=== PATIENT | female | born 1950 | race Caucasian/White ===

== ENCOUNTER 2016-11-09 15:13 | Emergency (ER) | payer MEDICARE, OTHER ==
[~2016-11-09] VITALS: Ht 157.5 cm; Wt 90.7 kg
[2016-11-09] MEDS ORDERED: ACETAMINOPHEN ES 500 MG TABLET ONE (16:15)
[2016-11-09] MEDS ORDERED: ACETAMINOPHEN ES 500 MG TABLET PO ONE (16:30)
[2016-11-09] MEDS ORDERED: INSULIN REGULAR, HUMAN 100 UNIT/ML 10 ML VIAL ONE (16:39)
--- NOTE | 2016-11-09 16:43 | NUR ---
stable; dc home with her family. no acute distress.
--- NOTE | 2016-11-09 16:43 | NUR ---
SQ x 1; given; witnessed by Gasper MARINA ; initial BS - 421; non-ketotic.
--- NOTE | 2016-11-09 16:44 | NUR ---
Patient discharged to home in stable condition. Written and verbal after care instructions given. Patient verbalizes understanding of instruction.
[2016-11-09 16:45] VITALS: BP 125/88
[2016-11-09] MEDS ORDERED: INSULIN REGULAR, HUMAN 100 UNIT/ML 10 ML VIAL SQ ONE (17:00)
== END 2016-11-09 16:46 | disposition home or self-care (01) ==
LOC: ER 15:16
DX: S39.012A Strain of muscle, fascia and tendon of lower back, initial encounter (principal); I10 Essential (primary) hypertension; X58.XXXA Exposure to other specified factors, initial encounter; Y93.89 Activity, other specified; Y92.89 Other specified places as the place of occurrence of the external cause; Y99.8 Other external cause status
CPT/HCPCS: 82962; 96372; 99283; A4606; J1815; Z7610

== ENCOUNTER 2021-10-05 02:15 | Emergency (ER) | payer MEDICARE, OTHER ==
[~2021-10-05] VITALS: Ht 170.2 cm; Wt 117.9 kg
--- NOTE | 2021-10-05 02:33 | NUR ---
Note godwin in EDM - 10/05/21 at 0247 by JED PATIENT TEO FROM [facility] C/O SOB. PATIENT IS NOT IN ANY DISTRESS WAS PLACED ON O2 NC 3L SATTING AT 99%. PLACED PATIENT IN BED 07 OPN MONITOR AND POX.
--- NOTE | 2021-10-05 02:33 | NUR ---
TEO FROM [facility] C/O HEADPAIN S/P LOST BALANCE, HIT HEAD ON SIDE OF BED -KO -HEADTRUAMA NOTED. PATIENT ALERT ANDORIENTED X3. AMBULATORY WITH NON LABORED BREATHING ON 2L SATTING 99%.
--- NOTE | 2021-10-05 02:34 | NUR ---
BLOOD COLLECTED AND SENT TO LAB
[2021-10-05] MEDS ORDERED: HYDROCODONE/APAP 5/325MG TABLET ONE (02:54)
[2021-10-05 02:58] LABS: BASOPHILS % (AUTO) 0.3 % (0.0-2.0); EOSINOPHILS % (AUTO) 0.1 % (0.0-6.0); HEMATOCRIT 41 % (33-45); HEMOGLOBIN 13.4 g/dL (11.5-14.8); LYMPHOCYTES # (AUTO) 0.7 K/uL (0.8-4.8); LYMPHOCYTES % (AUTO) 5.3 % (20.0-44.0); MEAN CORPUSCULAR HGB CONC 33 g/dl (31.0-36.0); MEAN CORPUSCULAR VOLUME 97 fL (82-100); MONOCYTES # (AUTO) 1.1 K/uL (0.1-1.30); MONOCYTES % (AUTO) 8.5 % (2.0-12.0); NEUTROPHILS % (AUTO) 85.8 % (43.0-81.0); PLATELET COUNT (AUTO) 84 K/uL (150-450); RED BLOOD CELL COUNT(AUTO) 4.19 MIL/uL (4.0-5.2); WHITE BLOOD COUNT (AUTO) 12.8 K/uL (4.3-11.0)
[2021-10-05] MEDS ORDERED: HYDROCODONE/APAP 5/325MG TABLET PO ONE (03:00)
[2021-10-05 03:09] LABS: CALCIUM, SERUM 8.8 mg/dL (8.5-10.1); CARBON DIOXIDE 28 mmol/L (21-32); CHLORIDE 98 mmol/L (98-107); GLUCOSE 193 mg/dL (74-106); POTASSIUM 3.6 mmol/L (3.5-5.1); SODIUM SERUM 133 mmol/L (136-145); UREA NITROGEN, BLOOD 19 mg/dL (7-18)
--- NOTE | 2021-10-05 03:09 | NUR ---
URINE SENT TO LAB
--- NOTE | 2021-10-05 03:13 | NUR ---
SAW RUNNER AT PT'S BEDSIDE
--- NOTE | 2021-10-05 03:15 | NUR ---
PT TAKEN TO CT VIA FELIPE
[2021-10-05 03:21] LABS: BILIRUBIN,URINE NEGATIVE (NEGATIVE); COLOR,URINE YELLOW (YELLOW); LEUKOCYTE ESTERASE ,URINE NEGATIVE (NEGATIVE); NITRITE, URINE POSITIVE (NEGATIVE); PROTEIN,URINE NEGATIVE (NEGATIVE); UGLUCOSE >=1000 mg/dL (NEGATIVE); UROBILINOGEN,URINE 0.2 EU/dL (0.2)
[2021-10-05 03:22] LABS: ALANINE AMINOTRANSFERASE 64 U/L (12-78); ALBUMIN 2.9 g/dL (3.4-5.0); ALKALINE PHOSPHATASE 425 U/L (46-116); ASPARTATE AMINOTRANSFERASE 60 U/L (15-37); BILIRUBIN,DIRECT 0.6 mg/dL (0.0-0.2); TOTAL PROTEIN, SERUM 7.8 g/dL (6.4-8.2)
--- NOTE | 2021-10-05 03:24 | NUR ---
PT RETURNED TO ER BED [address] V[address] FELIPE
[2021-10-05 03:26] LABS: BACTERIA,URINE Many /HPF (None Seen); RBC,URINE 0-2 /HPF (0-2); SQUAMOUS EPITHELIAL CELL,UR Few /HPF (None Seen); YEAST,URINE Few /HPF (None Seen)
--- NOTE | 2021-10-05 05:27 | NUR ---
[facility] ETA CHEESE BLENDER AT 0700
--- NOTE | 2021-10-05 06:13 | NUR ---
CALLED [facility] FOR PT UPDATE, NO ANSWER.
[2021-10-05 06:20] LABS: BAND % (MANUAL) 4 % (0.0-5.0); LYMPHOCYTES % (MANUAL) 6 % (16-48); MONOCYTES % (MANUAL) 9 % (0-11.0); NEUTROPHILS % (MANUAL) 81 (42-76)
--- NOTE | 2021-10-05 07:49 | NUR ---
TRANSPORT ARRIVED FOR ALLEY WORKER, REPORT GIVEN TO LINO Adams, PT WILL BE TAKEN TO [facility]
[2021-10-05 08:07] VITALS: BP 132/75
== END 2021-10-05 08:08 ==
LOC: ER 02:23
DX: S09.90XA Unspecified injury of head, initial encounter (principal); I10 Essential (primary) hypertension; K21.9 Gastro-esophageal reflux disease without esophagitis; E11.9 Type 2 diabetes mellitus without complications; J44.9 Chronic obstructive pulmonary disease, unspecified; J96.00 Acute respiratory failure, unspecified whether with hypoxia or hypercapnia; F32.9 Major depressive disorder, single episode, unspecified; W18.09XA Striking against other object with subsequent fall, initial encounter; Y93.89 Activity, other specified; Y92.89 Other specified places as the place of occurrence of the external cause; Y99.8 Other external cause status
CPT/HCPCS: 36415; 70450-TC; 71045-TC; 80048-TC; 80076-TC; 81001; 83605-TC; 83880; 84484-TC; 85025-TC; 85730-TC; 87040-TC; 87086-TC

== ENCOUNTER 2023-01-17 17:56 | Emergency (ER) | payer MEDICARE, OTHER ==
[~2023-01-17] VITALS: Ht 170.2 cm; Wt 117.5 kg
[2023-01-17] MEDS ORDERED: NYST15CR TP (18:19)
[2023-01-17] MEDS ORDERED: NYSTATIN CREAM 15 GM TUBE TP SCH (18:30)
--- NOTE | 2023-01-17 18:55 | NUR ---
CALLED [facility] FOR TRANSPORT ETA 1930. Addendum: 01/17/23 at 1857 by SAURAV RIVERA 2029 INA KRUGER
[2023-01-17 20:58] VITALS: BP 158/70
== END 2023-01-17 20:58 ==
LOC: ER 18:42
DX: B37.89 Other sites of candidiasis (principal); I10 Essential (primary) hypertension; J44.9 Chronic obstructive pulmonary disease, unspecified; E11.9 Type 2 diabetes mellitus without complications; K21.9 Gastro-esophageal reflux disease without esophagitis; F32.A Depression, unspecified; Z79.899 Other long term (current) drug therapy

== ENCOUNTER 2023-01-31 16:05 | Inpatient (IN) | payer MEDICARE, OTHER ==
[~2023-01-31] VITALS: Ht 152.4 cm; Wt 98.9 kg
[~2023-01-31 16:05] MED LIST: NYST15CR TP
--- NOTE | 2023-01-31 16:20 | NUR ---
MYCHAL JORDAN FRM MARTIN FOR NOTED INCREASED CONFUSION AND AGITATION. THE PATIENT IS ALERT AND ORIENTED X2. IN ROOM AIR AND DENIES SOB. RESPIRATION REGULAR AND UNLABORED. THE PATIENT IS ATTACHED TO THE MONITOR. WARM BLANKET PROVIDED FOR COMFORT. WILL CONTINUE TO MONITOR THE PATIENT.
[2023-01-31] MEDS ORDERED: HYDR-4076 PO (16:29)
[2023-01-31] MEDS ORDERED: EMPA25TA PO (16:29)
[2023-01-31] MEDS ORDERED: DOCU100T28 PO (16:29)
[2023-01-31] MEDS ORDERED: OMEP40CA21 PO (16:29)
[2023-01-31] MEDS ORDERED: ASPI-1169 PO (16:29)
[2023-01-31] MEDS ORDERED: METF-442 PO (16:29)
[2023-01-31] MEDS ORDERED: OXYB5TAB16 PO (16:29)
[2023-01-31] MEDS ORDERED: SERT25TA5 PO (16:29)
[2023-01-31] MEDS ORDERED: DICY10CA13 PO (16:29)
[2023-01-31] MEDS ORDERED: ICOS1CAP PO (16:29)
[2023-01-31] MEDS ORDERED: GLIP5TAB13 PO (16:29)
[2023-01-31] MEDS ORDERED: LEVO150T8 PO (16:29)
[2023-01-31] MEDS ORDERED: ACET-868 PO (16:29)
--- NOTE | 2023-01-31 16:30 | NUR ---
IV LINE IS ESTABLISHED, BLOOD SPECIMEN COLLECTED AND SENT TO THE LAB. THE LINE IS SALINE LOCKED.
--- NOTE | 2023-01-31 16:40 | NUR ---
URINE COLLECTED AND SENT TO THE LAB
[2023-01-31 16:48] LABS: BASOPHILS % (AUTO) 0.5 % (0.0-2.0); EOSINOPHILS % (AUTO) 1.4 % (0.0-6.0); HEMATOCRIT 32 % (33-45); HEMOGLOBIN 9.7 g/dL (11.5-14.8); LYMPHOCYTES # (AUTO) 1.1 K/uL (0.8-4.8); LYMPHOCYTES % (AUTO) 24.7 % (20.0-44.0); MEAN CORPUSCULAR HGB CONC 31 g/dl (31.0-36.0); MEAN CORPUSCULAR VOLUME 78 fL (82-100); MONOCYTES # (AUTO) 0.5 K/uL (0.1-1.30); MONOCYTES % (AUTO) 11.7 % (2.0-12.0); NEUTROPHILS # (AUTO) 2.7 K/uL (1.8-8.9); NEUTROPHILS % (AUTO) 61.7 % (43.0-81.0); PLATELET COUNT (AUTO) 153 K/uL (150-450); RED BLOOD CELL COUNT(AUTO) 4.06 MIL/uL (4.0-5.2); WHITE BLOOD COUNT (AUTO) 4.3 K/uL (4.3-11.0)
[2023-01-31 17:08] LABS: SERUM AMMONIA 13 umol/L (11-32)
[2023-01-31 17:15] LABS: ALANINE AMINOTRANSFERASE 55 U/L (12-78); ALBUMIN 2.7 g/dL (3.4-5.0); ALKALINE PHOSPHATASE 320 U/L (46-116); ASPARTATE AMINOTRANSFERASE 41 U/L (15-37); BILIRUBIN,DIRECT 0.2 mg/dL (0.0-0.2); BILIRUBIN,TOTAL 0.6 mg/dL (0.2-1.0); CALCIUM, SERUM 9.4 mg/dL (8.5-10.1); CARBON DIOXIDE 28 mmol/L (21-32); CHLORIDE 102 mmol/L (98-107); CREATININE 0.9 mg/dL (0.6-1.3); GLUCOSE 242 mg/dL (74-106); POTASSIUM 3.8 mmol/L (3.5-5.1); SODIUM SERUM 140 mmol/L (136-145); TOTAL PROTEIN, SERUM 8.3 g/dL (6.4-8.2); UREA NITROGEN, BLOOD 14 mg/dL (7-18)
[2023-01-31 17:21] LABS: BILIRUBIN,URINE NEGATIVE (NEGATIVE); COLOR,URINE YELLOW (YELLOW); LEUKOCYTE ESTERASE ,URINE 2+ (NEGATIVE); NITRITE, URINE POSITIVE (NEGATIVE); PROTEIN,URINE NEGATIVE (NEGATIVE); UGLUCOSE 3+ mg/dL (NEGATIVE); UROBILINOGEN,URINE 0.2 EU/dL (0.2)
--- NOTE | 2023-01-31 17:26 | NUR ---
THE PATIENT IS TAKEN TO CT VIA RNEY
--- NOTE | 2023-01-31 17:38 | NUR ---
RECEIVED TROPONIN RESULT 52. DR. SÁNCHEZ AWARE
--- NOTE | 2023-01-31 17:41 | NUR ---
COVID SWAB DONE AND SENT TO THE LAB
[2023-01-31 17:46] LABS: SITE, VBG Other; VBG COHb 0.1 %; VBG MetHb 0.3 %; VBG O2Hb 42.1 %; VENT MODE, VBG Room Air
[2023-01-31 17:47] LABS: BACTERIA,URINE 3+ /HPF (None Seen); RBC,URINE 0-2 /HPF (0-2); WBC,URINE 21-50 /HPF (0-3)
[2023-01-31] MEDS ORDERED: CEFTRIAXONE 1GM BAG (ER ONLY) 1 GM/50 ML PIGGYBACK IV ONE (18:00)
[2023-01-31] MEDS ORDERED: ASPIRIN 325 MG TABLET PO ONE (18:00)
[2023-01-31] MEDS ORDERED: CEFTRIAXONE 1 G in IV D5W 50 ML IV ONE (18:30)
[2023-01-31] MEDS ORDERED: ACETAMINOPHEN 325 MG TABLET PO PRN (20:00)
[2023-01-31] MEDS ORDERED: DEXTROSE 50%-WATER 50 ML DISP.SYRIN IV PRN (20:00)
[2023-01-31] MEDS ORDERED: ONDANSETRON HCL/PF 4 MG/2 ML VIAL IVP PRN (20:00)
[2023-01-31] MEDS ORDERED: MAGNESIUM HYDROXIDE 30 ML UDC PO PRN (20:00)
[2023-01-31] MEDS ORDERED: Z GUARD REMEDY 4 OZ OINT TP PRN (20:00)
--- NOTE | 2023-01-31 21:26 | NUR ---
REPORT GIVEN TO AUREA MARINA FOR CELESTE
--- NOTE | 2023-01-31 21:40 | NUR ---
CAMPAIGN SPECIALISTPAPER GOODS MACHINE SET UP OPERATOR NOTES REPORT RECEIVED FROM MARY LOU. PATIENT WAS TRANSFERRED FROM ER VIA GURNEY, WITH NO SIGNS OF DISTRESS. ORIENTED PATIENT TO ROOM SET UP AND EDUCATED PATIENT ON THE USE OF CALL LIGHT. VS TAKEN, STABLE AND RECORDED. SKIN ASSESSMENT DONE AND PICTURES TAKEN. ALL BELONGINGS CHECKED AND BELONGING LIST SIGNED. WILL CONTINUE TO MONITOR THE PATIENT AND WILL CARRY OUT ANY ONGOING ACTIVE MD ORDERS.
[2023-02-01] MEDS: BLOOD SUGAR DIAGNOSTIC 1 EACH STRIP IN SCH ×5 (01:49→21:30)
[2023-02-01] MEDS: SERTRALINE HCL 25 MG TABLET PO SCH ×2 (01:49→21:20)
[2023-02-01] MEDS: ENOXAPARIN SODIUM 40 MG/0.4 ML DISP.SYRIN SQ SCH ×2 (02:08→21:20)
[2023-02-01] MEDS: INSULIN REGULAR, HUMAN 100 UNIT/ML 3 ML VIAL SQ PRN ×5 (02:11→21:52)
[2023-02-01 03:54] VITALS: BP 148/68
[2023-02-01 06:53] LABS: BASOPHILS % (AUTO) 0.5 % (0.0-2.0); HEMATOCRIT 30 % (33-45); HEMOGLOBIN 9.1 g/dL (11.5-14.8); LYMPHOCYTES # (AUTO) 1.1 K/uL (0.8-4.8); LYMPHOCYTES % (AUTO) 21.7 % (20.0-44.0); MEAN CORPUSCULAR HGB CONC 30 g/dl (31.0-36.0); MEAN CORPUSCULAR VOLUME 78 fL (82-100); MONOCYTES # (AUTO) 0.7 K/uL (0.1-1.30); MONOCYTES % (AUTO) 13.4 % (2.0-12.0); NEUTROPHILS # (AUTO) 3.1 K/uL (1.8-8.9); NEUTROPHILS % (AUTO) 62.4 % (43.0-81.0); PLATELET COUNT (AUTO) 133 K/uL (150-450); RED BLOOD CELL COUNT(AUTO) 3.83 MIL/uL (4.0-5.2); WHITE BLOOD COUNT (AUTO) 4.9 K/uL (4.3-11.0)
--- NOTE | 2023-02-01 07:00 | NUR ---
ADMINISTRATION INTERNSHIP CLOSING NOTES PATIENT IN BED SLEEPING. EASILY AWAKEN BY VERBAL STIMULI. A/O X 2-3, CONFUSED. NO S/S OF PAIN NOTED AT THIS TIME. ON ROOM AIR, BREATHING EVEN AND UNLABORED, NO DISTRESS OR SOB NOTED. IV ACCESS RFA #20G, INTACT AND PATENT. PATIENT IN EXTERNAL OFFENSIVE COORDINATOR CURRENT READING OF SINUS RHYTHM @ 86 WITH BBB. ON PUREWICK DRAINED 500ML. SAFETY MEASURES MAINTAINED DURING SHIFT. ALL NEEDS ATTENDED. WILL ENDORSE TO THE NEXT SHIFT.
[2023-02-01 08:12] LABS: CALCIUM, SERUM 9.2 mg/dL (8.5-10.1); CREATININE 0.8 mg/dL (0.6-1.3); MAGNESIUM 2.1 mg/dL (1.8-2.4); PHOSPHORUS 4.7 mg/dL (2.5-4.9); POTASSIUM 3.9 mmol/L (3.5-5.1)
[2023-02-01 08:30] VITALS: BP 138/59
[2023-02-01] MEDS ORDERED: Medication Not On Formulary EA (Icosapent Ethyl (Vascepa) 1 GM) PO SCH (09:00)
[2023-02-01] MEDS: EMPAGLIFLOZIN 25 MG TABLET PO SCH ×2 (09:00→11:08)
[2023-02-01] MEDS: DOCUSATE SODIUM LIQ 100 MG/10 ML UDC PO SCH ×2 (10:40→17:46)
[2023-02-01] MEDS: ASPIRIN 81 MG TAB.CHEW PO SCH (10:40)
[2023-02-01] MEDS: LEVOTHYROXINE SODIUM 50 MCG TABLET PO SCH (10:41)
[2023-02-01] MEDS: OXYBUTYNIN CHLORIDE 5 MG TABLET PO SCH ×2 (10:43→17:46)
[2023-02-01] MEDS: PANTOPRAZOLE 40 MG TABLET.DR PO SCH (10:46)
[2023-02-01 13:00] VITALS: BP 126/56
[2023-02-01 17:30] VITALS: BP 126/62
--- NOTE | 2023-02-01 18:00 | NUR ---
retail sales consultant light freq.diaper chg. at least hourly.refuses to use purewick.
[2023-02-01] MEDS: CEFTRIAXONE 1 G in IV D5W 50 ML IV SCH (18:32)
--- NOTE | 2023-02-01 19:30 | NUR ---
NETWORK ANNOUNCER NOTES RECEIVED LYING ON BED,A/O X2-3,SPEAK GEORGIAN,BREATHING REGULAR,NOT IN NAY FORM OF DISTRESS.WITH SALINE RIGHT FOREARM INTACT AND PATENT,PUREWICK REFUSED,ON DIAPER.OBESE,NOTED MULTIPLE DRY SMALL DRY WOUND WITH SCAB ON SHOULDER AND EXTREMITIES.FALL RISK,BED ON LOWEST POSITION AND LOCKED.BED ALAR,M,CALL LIGHT IN REACH,NEEDS ANTICIPATED.
[2023-02-01 20:00] VITALS: BP 116/47
--- NOTE | 2023-02-01 22:00 | NUR ---
PUBLIC POLICY ASSOCIATE NOTES ACCU-CHECK BLOOD SUGAR CHECK 161,COVERED WITH HUMULIN R 3 UNITS PER SLIDING SCALE.
--- NOTE | 2023-02-01 23:00 | NUR ---
VAULT MECHANIC NOTES REFUSED TELE BOX,EXPLAINED RISK AND BENEFITS BUT STILL REFUSED TO HAVE IT ON.
[2023-02-02 05:00] VITALS: BP 120/67
--- NOTE | 2023-02-02 05:30 | NUR ---
VISUAL JOURNALIST NOTES ACCU-CHECK BLOOD SUGAR CHECK 204,COVERED WITH HUMULIN R 4 UNITS PER SLIDING SCALE.
[2023-02-02] MEDS: BLOOD SUGAR DIAGNOSTIC 1 EACH STRIP IN SCH ×4 (05:35→21:30)
[2023-02-02] MEDS: INSULIN REGULAR, HUMAN 100 UNIT/ML 3 ML VIAL SQ PRN ×3 (05:36→21:40)
[2023-02-02 06:28] LABS: BASOPHILS % (AUTO) 0.3 % (0.0-2.0); EOSINOPHILS % (AUTO) 2.6 % (0.0-6.0); HEMATOCRIT 30 % (33-45); HEMOGLOBIN 9.3 g/dL (11.5-14.8); LYMPHOCYTES # (AUTO) 1.3 K/uL (0.8-4.8); LYMPHOCYTES % (AUTO) 26.2 % (20.0-44.0); MEAN CORPUSCULAR HGB CONC 31 g/dl (31.0-36.0); MEAN CORPUSCULAR VOLUME 78 fL (82-100); MONOCYTES # (AUTO) 0.6 K/uL (0.1-1.30); MONOCYTES % (AUTO) 10.8 % (2.0-12.0); NEUTROPHILS # (AUTO) 3.1 K/uL (1.8-8.9); NEUTROPHILS % (AUTO) 60.1 % (43.0-81.0); PLATELET COUNT (AUTO) 142 K/uL (150-450); RED BLOOD CELL COUNT(AUTO) 3.91 MIL/uL (4.0-5.2); WHITE BLOOD COUNT (AUTO) 5.1 K/uL (4.3-11.0)
--- NOTE | 2023-02-02 06:32 | NUR ---
FRANCHISE MANAGER NOTES CALM AND QUIET THRU OUT SHIFT.STILL REFUSING TELE MONITOR.MORE ALERT,KNOWS WHERE HER DAUGHTER WORK.CALL LIGHT IN REAC,NEEDS ATTENDED.
[2023-02-02 07:04] LABS: ALBUMIN 2.4 g/dL (3.4-5.0); BILIRUBIN,TOTAL 0.4 mg/dL (0.2-1.0); CALCIUM, SERUM 8.9 mg/dL (8.5-10.1); CREATININE 0.7 mg/dL (0.6-1.3); MAGNESIUM 2.1 mg/dL (1.8-2.4); POTASSIUM 4.4 mmol/L (3.5-5.1); TOTAL PROTEIN, SERUM 7.7 g/dL (6.4-8.2)
[2023-02-02 07:14] LABS: THYROID STIMULATING HORMONE 3.031 uIU/mL (0.358-3.74)
--- NOTE | 2023-02-02 07:40 | NUR ---
SCISSORS SHARPENER OPENING NOTES RECEIVED PATIENT IN BED, AWAKE,A/O X2-3,TURKMEN SPEAKING. NO SIGNS OF ACUTE DISTRESS NOTED. ON ROOM AIR, TOLERATING WELL. NO SOB NOTED, BREATHING EVEN AND UNLABORED. ON TLEE MONITORING BUT PATIENT REFUSING. DENIES ANY PAIN AT THIS TIME. NOTED WITH IV ACCESS AT RFA #20G-SL, INTACT AND PATENT. NOTED WITH MULTIPLE DRY SMALL WOUND WITH SCAB ON SHOULDER AND EXTREMITIES. ENCOURAGED VERBALIZATION OF NEEDS. SAFETY MEASURES PUT IN PLACE. BED IN LOW AND LOCKED POSITION; SIDE RAILS UP X2; CALL LIGHT AND TABLE WITHIN EASY REACH. WILL CONTINUE WITH PLAN OF CARE.
[2023-02-02] MEDS: DOCUSATE SODIUM LIQ 100 MG/10 ML UDC PO SCH ×2 (08:38→16:11)
[2023-02-02] MEDS: PANTOPRAZOLE 40 MG TABLET.DR PO SCH (08:38)
[2023-02-02] MEDS: LEVOTHYROXINE SODIUM 50 MCG TABLET PO SCH (08:39)
[2023-02-02] MEDS: ASPIRIN 81 MG TAB.CHEW PO SCH (08:39)
[2023-02-02] MEDS: OXYBUTYNIN CHLORIDE 5 MG TABLET PO SCH ×2 (08:39→16:11)
[2023-02-02] MEDS: EMPAGLIFLOZIN 25 MG TABLET PO SCH (08:41)
[2023-02-02 09:30] VITALS: BP 117/54
--- NOTE | 2023-02-02 12:29 | NUR ---
STATION ENGINEER MAIN LINE NOTES PT'S BLOOD SUGAR CHECK RESULT IS 288. GAVE 6 UNITS INSULIN PER SCALE COVERAGE PER MD ORDER.
[2023-02-02] MEDS: SOD FERRIC GLUC 125 MG in IV NS 0.9% 100 ML IV SCH (13:57)
--- NOTE | 2023-02-02 17:11 | NUR ---
FIRMWARE DEVELOPER NOTES PT'S BLOOD SUGAR CHECK RESULT IS 124. NO INSULIN COVERAGE SCALE PER MD ORDER.
[2023-02-02] MEDS: CEFTRIAXONE 1 G in IV D5W 50 ML IV SCH (17:52)
--- NOTE | 2023-02-02 18:13 | NUR ---
FIRE SAFETY MANAGER NOTES. PATIENT COMPLAINED OF HEADACHE AND ASKED FOR TYLENOL. GAVE TYLENOL 650MG. WILL CONTINUE TO MONITOR.
--- NOTE | 2023-02-02 18:57 | NUR ---
REGISTERED PUBLIC HEALTH NURSE CLOSING NOTES PATIENT IN BED, AWAKE,A/O X2-3,TUNISIAN SPEAKING. NO SIGNS OF ACUTE DISTRESS NOTED. ON ROOM AIR, TOLERATED WELL. NO SOB NOTED, BREATHING EVEN AND UNLABORED. NOTED WITH IV ACCESS AT R HAND #24G-SL, INTACT, PATENT AND FLUSHING WELL. NOTED WITH MULTIPLE DRY SMALL WOUND WITH SCAB ON SHOULDER AND EXTREMITIES. ALL DUE MEDS ATTENDED. ALL NURSING NEEDS ATTENDED. SAFETY MEASURES PUT IN PLACE. BED IN LOW AND LOCKED POSITION; SIDE RAILS UP X2; CALL LIGHT AND TABLE WITHIN EASY REACH. WILL ENDORSE TO BOILER MAKER NURSE FOR CONTINUITY OF CARE.
--- NOTE | 2023-02-02 19:20 | NUR ---
MS RN OPENING NOTES PATIENT IS SITTING AT HER BED SIDE. SHE IS AWAKE, ALERT AND ORIENTED, A/O X2-3. PT IS POLISH SPEAKING; UNDERSTAND SIMPLE HUNGARIAN. SHE IS ON RA, TOLERATED WELL. NO S/S OF DISTRESS OR SOB. IV ACCESS IS AT R HAND #24G, SL; FLUSHED WELL WITH 10 CC OF NS. IV SITE IS PATENT AND INTACT. SAFETY MEASURES ARE IN PLACED: BED IN LOWEST AND LOCKED POSITION; SIDE RAILS UP X 2; CALL LIGHT AND TABLE ARE WITHIN EASY REACH. WILL CONTINUE MONITORING THE PT AND PROVIDE THE CARE PT NEEDS.
[2023-02-02 20:00] VITALS: BP 132/56
[2023-02-02] MEDS: SERTRALINE HCL 25 MG TABLET PO SCH (21:29)
[2023-02-02] MEDS: ENOXAPARIN SODIUM 40 MG/0.4 ML DISP.SYRIN SQ SCH (21:30)
[2023-02-03] VITALS: BP_SYST 102; BP_DIAS 54; BP_DIAS 59
[2023-02-03 04:00] VITALS: BP_SYST 102; BP_SYST 120; BP_DIAS 54; BP_DIAS 55
[2023-02-03 06:25] LABS: BASOPHILS % (AUTO) 0.6 % (0.0-2.0); EOSINOPHILS % (AUTO) 2.3 % (0.0-6.0); HEMATOCRIT 29 % (33-45); HEMOGLOBIN 9.2 g/dL (11.5-14.8); LYMPHOCYTES % (AUTO) 18.3 % (20.0-44.0); MEAN CORPUSCULAR HGB CONC 32 g/dl (31.0-36.0); MEAN CORPUSCULAR VOLUME 78 fL (82-100); MONOCYTES # (AUTO) 0.5 K/uL (0.1-1.30); MONOCYTES % (AUTO) 9.8 % (2.0-12.0); NEUTROPHILS # (AUTO) 3.9 K/uL (1.8-8.9); PLATELET COUNT (AUTO) 158 K/uL (150-450); RED BLOOD CELL COUNT(AUTO) 3.77 MIL/uL (4.0-5.2); WHITE BLOOD COUNT (AUTO) 5.6 K/uL (4.3-11.0)
[2023-02-03] MEDS: INSULIN REGULAR, HUMAN 100 UNIT/ML 3 ML VIAL SQ PRN ×2 (06:26→12:00)
[2023-02-03] MEDS: BLOOD SUGAR DIAGNOSTIC 1 EACH STRIP IN SCH ×2 (06:34→11:58)
--- NOTE | 2023-02-03 06:51 | NUR ---
MS RN CLOSING NOTES PATIENT IS SITTING IN THE CHAIR AT HER BED SIDE. SHE IS AWAKE, ALERT AND ORIENTED, A/O X 2. SHE IS ON RA, TOLERATED WELL. NO S/S OF DISTRESS OR SOB. IV ACCESS IS AT HER R HAND #24G, SL; FLUSHED WELL WITH 10 CC OF NS. IV SITE IS PATENT AND INTACT. SAFETY MEASURES ARE IN PLACED: BED IN LOWEST AND LOCKED POSITION; SIDE RAILS UP X 2; CALL LIGHT AND TABLE ARE WITHIN EASY REACH. WILL ENDORSE NEXT SHIFT NURSE FOR CONTINUING PT CARE.
[2023-02-03 07:03] LABS: CALCIUM, SERUM 8.2 mg/dL (8.5-10.1); CREATININE 0.8 mg/dL (0.6-1.3); MAGNESIUM 2.2 mg/dL (1.8-2.4); PHOSPHORUS 2.9 mg/dL (2.5-4.9); POTASSIUM 3.9 mmol/L (3.5-5.1)
--- NOTE | 2023-02-03 07:18 | NUR ---
MS RN OPENING NOTES RECEIVED PATIENT SITTING ON THE CHAIR AT THE BED SIDE. SHE IS AWAKE, ALERT AND ORIENTED, A/O X3. PT IS TOGOLESE SPEAKING; UNDERSTAND SIMPLE TURKMEN. SHE IS ON RA, TOLERATED WELL, NO S/S OF DISTRESS OR SOB, SATURATING AT 95%, IV ACCESS IS AT R HAND #24G, SL; FLUSHED WELL, IV SITE IS PATENT AND INTACT. SAFETY MEASURES ARE IN PLACED: BED IN LOWEST AND LOCKED POSITION; SIDE RAILS UP X 2; CALL LIGHT AND TABLE ARE WITHIN EASY REACH. WILL CONTINUE MONITORING THE PT AND PROVIDE THE CARE PT NEEDS.
[2023-02-03] MEDS: PANTOPRAZOLE 40 MG TABLET.DR PO SCH (08:03)
[2023-02-03] MEDS: LEVOTHYROXINE SODIUM 50 MCG TABLET PO SCH (08:03)
[2023-02-03 08:33] VITALS: BP 112/43
[2023-02-03] MEDS: DOCUSATE SODIUM LIQ 100 MG/10 ML UDC PO SCH ×2 (08:35→17:00)
[2023-02-03] MEDS: ASPIRIN 81 MG TAB.CHEW PO SCH (08:35)
[2023-02-03] MEDS: OXYBUTYNIN CHLORIDE 5 MG TABLET PO SCH ×2 (08:35→17:00)
[2023-02-03] MEDS: MUPIROCIN OINT 2% 22 GM TUBE NS SCH ×2 (08:36→17:00)
[2023-02-03] MEDS: EMPAGLIFLOZIN 25 MG TABLET PO SCH (09:17)
[2023-02-03] MEDS ORDERED: CEPH500C2 PO (10:37)
[2023-02-03] MEDS: SOD FERRIC GLUC 125 MG in IV NS 0.9% 100 ML IV SCH (14:35)
[2023-02-03 16:00] VITALS: BP 132/42
--- NOTE | 2023-02-03 17:04 | NUR ---
COSTING ANALYST NOTE PATIENT DISCHARGE IN STABLE MEDICAL CONDITION, A/OX3, V/S TAKEN, STABLE AND RECORDED, REMOVED IV ACCESS, NO BLEEDING NOTED, APPLIED DD, NAME ARM BAND REMOVED, SKIN ASSESSMENT DONE AND PICTURES TAKEN, ALL BELONGING CHECKED, HEALTH TEACHING AND DISCHARGE INSTRUCTION GIVEN AT [facility] NURSE SALAS PHELPS, AND VERBALIZED UNDERSTANDING, INSTRUCTED RN AT THE FACILITY TO MAKE AND APPOINTMENT WITH THE PCP IN 1 WEEK, DISCUSSED PRESCRIPTION WITH THE FACILITY NURSE, INSTRUCTED TO CALL 911 OR GO TO THE NEAREST ER FOR ANY EMERGENCY, PATIENT LEFT UNIT VIA GURNEY W/ NO DISTRESS, ACCOMPANIED BY 2 EMT AT 1645, AND CHARGE NURSE AWARE.
== END 2023-02-03 17:58 | DRG 689 ==
LOC: ER 17:05 → TELE 20:58 → MED 02-03 12:13
PROVIDERS: ADMIT Nurse Practitioner Family; ATTEND Nurse Practitioner Family
DX: N39.0 Urinary tract infection, site not specified (principal); G93.41 Metabolic encephalopathy; I21.A1 Myocardial infarction type 2; E44.0 Moderate protein-calorie malnutrition; Z68.41 Body mass index [BMI] 40.0-44.9, adult; E88.09 Other disorders of plasma-protein metabolism, not elsewhere classified; E03.9 Hypothyroidism, unspecified; F32.A Depression, unspecified; I10 Essential (primary) hypertension; J44.9 Chronic obstructive pulmonary disease, unspecified; K21.9 Gastro-esophageal reflux disease without esophagitis; Z79.82 Long term (current) use of aspirin; Z79.84 Long term (current) use of oral hypoglycemic drugs; E11.9 Type 2 diabetes mellitus without complications; D50.9 Iron deficiency anemia, unspecified; Z20.822 Contact with and (suspected) exposure to COVID-19; B96.20 Unspecified Escherichia coli [E. coli] as the cause of diseases classified elsewhere
CPT/HCPCS: 36415; 70450-TC; 71045-TC; 80048-TC; 80053-TC; 80076-TC; 81001; 82140-TC; 82728-TC; 82803-TC; 82962-TC; 83540-TC; 83605-TC; 83735-TC; 84100-TC; 84443-TC; 84484-TC; 85025-TC; 87040-TC; 87081-TC; 87086-TC; 93307-TC; 93971-TC; 97112-TC; 97116-TC; 97530-TC; A4223; C9803; G0378; J0696; J1650; J1815; J2916; J7030; J7040; J7050; J7060